=== PATIENT | female | born 1960 | race Caucasian/White ===

== ENCOUNTER 2020-08-10 10:27 | Day surgery (SDC) | payer MEDICAID ==
[~2020-08-10] VITALS: Ht 162.6 cm; Wt 98.6 kg
[~2020-08-10 10:27] MED LIST: HYT1T PO; INTERFERON SQ; LEVO75TA56 PO
[2020-08-10 10:40] VITALS: BP_SYST 126; BP_DIAS 35; BP_DIAS 36
[2020-08-10] MEDS ORDERED: MIDAZolam 1 MG/ML 5ML VIAL ONE (11:24)
[2020-08-10] MEDS ORDERED: fentaNYL/PF 50MCG/1 ML 2ML syringe ONE (11:24)
[2020-08-10 11:48] VITALS: BP 132/87
[2020-08-10 11:58] VITALS: BP 125/88
[2020-08-10 12:08] VITALS: BP 125/83
[2020-08-10 12:18] VITALS: BP 116/79
== END 2020-08-10 13:30 | disposition home or self-care (01) ==
LOC: GI LAB 10:27
PROVIDERS: ATTEND Internal Medicine Gastroenterology
DX: R12 Heartburn (principal); R10.9 Unspecified abdominal pain; K21.9 Gastro-esophageal reflux disease without esophagitis; K29.70 Gastritis, unspecified, without bleeding; K31.89 Other diseases of stomach and duodenum
CPT/HCPCS: 43239; 99152; J2250; J3010; J7040; A4620

== ENCOUNTER 2024-10-16 08:51 | Outpatient (CLI) | payer MEDICAID ==
[~2024-10-16 08:51] MED LIST changes: -HYT1T PO; -INTERFERON SQ
[2024-10-16] MEDS ORDERED: iohexol 300mg/ml 100ml inj. ONE (09:01)
--- NOTE | 2024-10-16 12:18 | RADIOLOGY REPORT ---
Exam: CT CT ABDOMEN W/ IV CONTRAST History: INTRA-ABD AND PELVIC SWELLING, MASS AND LUMP, UNSP SITE Comparison Study: None Contrast: Type of contrast: Omnipaque 300 Contrast injected: 100 mL Contrast wasted: 0 TECHNIQUE: CT of the abdomen was performed from the lung bases to the iliac crests without and with i ntravenous contrast. Coronal and sagittal reformatted images are provided. Radiation Dose Information: CT Dose: CTDI volume is 32.3 mGy. Dose-length product is 1117.1 mGy*cm FINDINGS: Lung Bases: No acute or significant lung base finding. Normal heart size. No pleural or pericardial effusion. Liver: The liver is normal in size. There is a 5.4 cm by 4.8 cm hypodense lesion in the posterior ri ght hepatic lobe which demonstrates no enhancement, consistent with a cyst. No enhancing solid mass. Gallbladder and Biliary Tree: The gallbladder is unremarkable. No biliary ductal dilatation. Spleen: Unremarkable Pancreas: The pancreas is normal in appearance without focal lesions or abnormal enhancement. Adrenal Glands: Unremarkable Kidneys: Kidneys demonstrate normal symmetric enhancement without focal lesions, calculi or hydroneph rosis. Bowel: The stomach is grossly normal in appearance. Small bowel and colon are normal in caliber and d istribution. The appendix is not visualized however may be excluded from the [id number]. Intraperitoneal cavity: No pneumoperitoneum. No ascites. Lymphadenopathy: No mesenteric, retroperitoneal or periportal lymphadenopathy. Abdominal Wall and Mesentery: Unremarkable. Vasculature: The visualized abdominal aorta is normal in size and caliber. Abdominal and pelvic vess els demonstrate normal enhancement. Musculoskeletal: No aggressive focal bony lesions, acute fractures or dislocation. Grade 1 anterolist hesis at L4-L5. Soft tissues: Unremarkable. IMPRESSION: 1. No acute abnormality in the abdomen. No suspicious mass. All CT scans at this medical facility are performed using dose modulation techniques as appropriate t o a performed exam including the following: Automated exposure control was utilized; adjustment of th e MA and/or KV according to patient size; and use of iterative reconstruction technique.
== END 2024-10-16 23:59 | disposition home or self-care (01) ==
LOC: RAD 08:51
PROVIDERS: ATTEND Specialist
DX: K76.9 Liver disease, unspecified (principal); R19.00 Intra-abdominal and pelvic swelling, mass and lump, unspecified site; M43.16 Spondylolisthesis, lumbar region
CPT/HCPCS: 74170; Q9967